=== PATIENT | male | born 1990 | race Caucasian/White ===

== ENCOUNTER 2016-08-12 14:44 | Outpatient (CLI) | payer OTHER ==
--- NOTE | 2016-08-12 15:26 | DIAGNOSTIC IMAGING REPORT ---
PROCEDURE: XR LUMBAR SPINE 2 OR 3 VIEWS INDICATION: RIGHT HIP SURGERY, ACUTE BILATERAL LOW BACK PAIN W/O SCIATIC TECHNIQUE: Three views. COMPARISON: None. FINDINGS: There is a grade 1 spondylolisthesis at L5-S1. There is compression deformity at T11 which represents approximately 20% of vertebral body height. IMPRESSION: 1. L5-S1 spondylolisthesis. 2. Mild compression deformity at T11.
--- NOTE | 2016-08-12 15:32 | DIAGNOSTIC IMAGING REPORT ---
PROCEDURE: XR HIP BILATERAL INDICATION: RIGHT HIP SURGERY, ACUTE BILATERAL LOW BACK PAIN W/O SCIATIC TECHNIQUE: AP view of the pelvis and hips with lateral views of the bilateral hips. COMPARISON: None. FINDINGS: RIGHT HIP: Osseous structures and joint spaces are normal. LEFT HIP: A pin through the femoral neck. There is no fracture or dislocation. PELVIS: Osseous pelvis is normal. IMPRESSION: 1. 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
== END 2016-08-12 23:00 ==
LOC: XR SRH 14:44
DX: M43.17 Spondylolisthesis, lumbosacral region (principal); M43.8X4 Other specified deforming dorsopathies, thoracic region; Z98.890 Other specified postprocedural states